=== PATIENT | male | born 1975 | race Caucasian/White ===

== ENCOUNTER 2020-06-21 17:03 | Outpatient (CLI) | payer BC, SELFPAY | END 2020-06-21 17:04 | disposition home or self-care (01) | LOC: ANHCOVIDVC 17:03 | DX: Z23 Encounter for immunization (principal) | CPT/HCPCS: 0001A; 91300 ==

== ENCOUNTER 2020-07-12 15:30 | Outpatient (CLI) | payer BC, SELFPAY | END 2020-07-12 15:31 | disposition home or self-care (01) | LOC: ANHCOVIDVC 15:31 | DX: Z23 Encounter for immunization (principal) | CPT/HCPCS: 0002A; 91300 ==